=== PATIENT | female | born 1990 | race Caucasian/White ===

== ENCOUNTER 2018-08-27 15:47 | Emergency (ER) | payer OTHER ==
[2018-08-27 15:59] VITALS: BP 112/74; PULSE 96; RESP 20; TEMP 99.2; O2SAT 98
--- NOTE | 2018-08-27 17:40 | ED PDOC ---
HPI: Influenza Time Seen by Provider: 08/27/18 17:35 Chief Complaint: Cough, Cold, Congestion Chief Complaint (Provider): Cough, Fever, Headache History Per: Patient Exam Limitations: no limitations Have you had recent travel within the past 21 days to any of: No Onset/Duration Of Symptoms: Days Symptoms include: fever, cough. denies: bodyaches, vomiting, diarrhea Additional complaint(s):: 27 y/o female presents to the ED for an evaluation of cough, mild fever and migraine associated with left ear pain onset for 2 days. She reports of headache since last week. Otherwise, she denies body ache, vomiting, diarrhea, nausea, swallowing problems, sick contacts or recent travels. PMD: Non [facility] Provider Past Medical History Reviewed: Historical Data, Nursing Documentation, Vital Signs Vital Signs: Last Vital Signs Temp 99.2 F 08/27/18 15:55 Pulse 96 H 08/27/18 15:55 Resp 20 08/27/18 15:55 BP 112/74 08/27/18 15:55 Pulse Ox 98 08/27/18 15:55 - Medical History PMH: Migraine, Sexually Transmitted Disease (HPV) Denies: Chronic Kidney Disease - Family History Family History: States: Unknown Family Hx - Social History Current smoker - smoking cessation education provided: No Alcohol: None Drugs: Denies - Immunization History Hx Tetanus Toxoid Vaccination: No Hx Influenza Vaccination: No Hx Pneumococcal Vaccination: No - Home Medications Home Medications: Ambulatory Orders Medication Instructions Recorded Acetaminophen/Butalbital/Caf 1 tab PO TID PRN #20 tab 01/20/16 [Fioricet] RX: Amoxicillin [Amoxil 500 mg Cap] 500 mg PO TID #21 cap 03/10/17 Amoxicillin/Clavulanate [Augmentin 1 tab PO BID #20 tab 08/27/18 875 MG-125 MG] RX: Benzonatate 200 mg PO TID #30 capsule 08/27/18 - Allergies Allergies/Adverse Reactions: Allergies Allergy/AdvReac Type Severity Reaction Status Date / Time No Known Allergies Allergy Verified 03/10/17 03:33 Review of Systems ROS Statement: Except As Marked, All Systems Reviewed And Found Negative Constitutional: Positive for: Fever (mild) ENT: Positive for: Ear Pain (left) Respiratory: Positive for: Cough Gastrointestinal: Negative for: Nausea, Vomiting, Abdominal Pain, Diarrhea Neurological: Positive for: Headache Physical Exam - Reviewed Nursing Documentation Reviewed: Yes Vital Signs Reviewed: Yes - Physical Exam Appears: Positive for: Well, Non-toxic, No Acute Distress Head Exam: Positive for: ATRAUMATIC, NORMAL INSPECTION, NORMOCEPHALIC Skin: Positive for: Normal Color, Warm, Dry. Negative for: Rash Eye Exam: Positive for: EOMI, Normal appearance, PERRL ENT: Positive for: TM Is/Are (Right TM is intact, positive for light reflection and fluid noticed; left TM is intact, positive for light reflection and clear ), Tonsillar Swelling (nodes are mildly enlarged). Negative for: Pharyngeal Erythema Cardiovascular/Chest: Positive for: Regular Rate, Rhythm Respiratory: Positive for: Normal Breath Sounds. Negative for: Decreased Breath Sounds, Wheezing, Respiratory Distress Neurologic/Psych: Positive for: Alert, Oriented (x3). Negative for: Motor/Sensory Deficits Medical Decision Making Medical Decision Making: Time: 1734 Upon provider reevaluation patient is feeling better, is medically stable, and requires no further treatment in the ED at this time. Patient will be discharged home with Amoxicillin and Benzonatate 200 mg for sinusitis in adults. Counseling was provided and all questions were answered regarding diagnosis and need for follow up with doctor. There is agreement to discharge plan. Return if symptoms persist or worsen. Scribe Attestation: Documented by Jazmine De La Torre, acting as a scribe for Luis Enrique Giang PA-C Provider Scribe Attestation: All medical record entries made by the Scribe were at my direction and personally dictated by me. I have reviewed the chart and agree that the record accurately reflects my personal performance of the history, physical exam, med ica decision making, and the department course for this patient. I have also personally directed, reviewed, and agree with the discharge instructions and disposition. - ECG O2 Sat by Pulse Oximetry: 98 (RA) Pulse Ox Interpretation: Normal Disposition - Clinical Impression Clinical Impression: Acute bacterial sinusitis, Cough - Patient ED Disposition Is Patient to be Admitted: No Doctor Will See Patient In The: Office Counseled Patient/Family Regarding: Diagnosis, Need For Followup, Rx Given - Disposition Referrals: LTAC[facility] [Outside] Disposition: Routine/Home Disposition Time: 17:40 Condition: STABLE Prescriptions: Amoxicillin/Clavulanate [Augmentin 875 MG-125 MG] 1 tab PO BID #20 tab RX: Benzonatate 200 mg PO TID #30 capsule Instructions: Sinusitis in Adults Forms: [employer] ([place]), [facility] ED School/Work Excuse
--- NOTE | 2018-08-27 17:42 | ED PDOC ---
HPI: CCC, URI, Sore Throat Time Seen by Provider: 08/27/18 17:35 Chief Complaint (Nursing): Cough, Cold, Congestion Chief Complaint (Provider): Cough, Fever, Migraine History Per: Patient History/Exam Limitations: no limitations Onset/Duration Of Symptoms: Days Current Symptoms Are (Timing): Still Present Location Of Pain: Ear(s), Throat, Headache Sick Contacts (Context): None Associated Symptoms: Fever, Cough Additional Complaint(s): 27 y/o female presents to the ED for an evaluation of cough, mild fever and migraine associated with left ear pain onset for 2 days. She reports of headache since last week. Otherwise, she denies body ache, vomiting, diarrhea, nausea, swallowing problems, sick contacts or recent travels. PMD: Non [facility] Provider Past Medical History Reviewed: Historical Data, Nursing Documentation, Vital Signs Vital Signs: Last Vital Signs Temp 99.2 F 08/27/18 15:55 Pulse 96 H 08/27/18 15:55 Resp 20 08/27/18 15:55 BP 112/74 08/27/18 15:55 Pulse Ox 98 08/27/18 15:55 - Medical History PMH: Migraine, Sexually Transmitted Disease (HPV) Denies: Chronic Kidney Disease - Family History Family History: States: Unknown Family Hx - Social History Current smoker - smoking cessation education provided: No Alcohol: None Drugs: Denies - Immunization History Hx Tetanus Toxoid Vaccination: No Hx Influenza Vaccination: No Hx Pneumococcal Vaccination: No - Home Medications Home Medications: Ambulatory Orders Medication Instructions Recorded Acetaminophen/Butalbital/Caf 1 tab PO TID PRN #20 tab 01/20/16 [Fioricet] Amoxicillin [Amoxil 500 mg Cap] 500 mg PO TID #21 cap 03/10/17 Amoxicillin/Clavulanate [Augmentin 1 tab PO BID #20 tab 08/27/18 875 MG-125 MG] - Allergies Allergies/Adverse Reactions: Allergies Allergy/AdvReac Type Severity Reaction Status Date / Time No Known Allergies Allergy Verified 03/10/17 03:33 - ECG O2 Sat by Pulse Oximetry: 98 Disposition - Disposition
== END 2018-08-27 18:00 | disposition home or self-care (01) ==
LOC: H.ER 15:47
DX: J01.90 Acute sinusitis, unspecified (principal); R05 Cough